=== PATIENT | female | born 1985 | race Caucasian/White ===

== ENCOUNTER 2018-07-08 11:15 | Emergency (ER) | payer SELFPAY ==
[~2018-07-08] VITALS: Ht 170.2 cm; Wt 76.0 kg
[2018-07-08 12:45] VITALS: BP 143/80
[2018-07-08] MEDS ORDERED: IBUPROFEN 600MG TABLET PO ONE (12:45)
== END 2018-07-08 14:10 | disposition left against medical advice (07) ==
LOC: ER 11:15
DX: S92.412A Displaced fracture of proximal phalanx of left great toe, initial encounter for closed fracture (principal); X58.XXXA Exposure to other specified factors, initial encounter; Y93.89 Activity, other specified; Y92.89 Other specified places as the place of occurrence of the external cause
CPT/HCPCS: 73660; 81025; 99283

== ENCOUNTER 2018-07-08 14:54 | Emergency (ER) | payer SELFPAY ==
[~2018-07-08] VITALS: Ht 172.7 cm; Wt 56.0 kg
[2018-07-08 16:05] VITALS: BP 128/84
== END 2018-07-08 16:47 | disposition home or self-care (01) ==
LOC: ER 14:54
DX: S92.412A Displaced fracture of proximal phalanx of left great toe, initial encounter for closed fracture (principal); X58.XXXA Exposure to other specified factors, initial encounter; Y93.9 Activity, unspecified; Y92.098 Other place in other non-institutional residence as the place of occurrence of the external cause; R03.0 Elevated blood-pressure reading, without diagnosis of hypertension; F17.210 Nicotine dependence, cigarettes, uncomplicated
CPT/HCPCS: 29515; 99282; 99283

== ENCOUNTER → 2019-12-06 | Outpatient (CLI) | payer MEDICAID ==
[~2019-12-06] MED LIST: PNV1TABL76 PO
== END | disposition home or self-care (01) ==
LOC: LAB 15:25
PROVIDERS: ATTEND Obstetrics & Gynecology
DX: Z20.828 Contact with and (suspected) exposure to other viral communicable diseases (principal)
CPT/HCPCS: C9803; U0003